=== PATIENT | female | born 1990 | race Caucasian/White ===

== ENCOUNTER 2019-10-18 00:22 | Inpatient (IN) | payer OTHER ==
[2019-10-18 06:41] VITALS: BMI 30.4
[2019-10-18] MEDS ORDERED: CARBOPROST TROME 250 MCG/ML IM PRN ×2 (06:42→17:41)
[2019-10-18] MEDS ORDERED: PROMETHAZINE INJ 25 MG/ML AMP IV PRN (06:42)
[2019-10-18] MEDS ORDERED: METHYLERGONOVINE 0.2MG/ML AMP IM PRN ×2 (06:42→17:41)
[2019-10-18] MEDS ORDERED: BUTORPHANOL 1 MG/ML INJ IV PRN (06:42)
[2019-10-18] MEDS ORDERED: PENICILLIN 5 MU in NA CHLORIDE 0.9% 100 ML IV ONE (06:42)
[2019-10-18] MEDS ORDERED: Ringers Lactate 1,000 ML IV PRN (06:42)
[2019-10-18] MEDS ORDERED: OXYTOCIN/LR 20 UNIT/1,000 ML BAG IV SCH ×2 (07:00→18:00)
[2019-10-18] MEDS ORDERED: Ringers Lactate 1,000 ML IV SCH (07:00)
[2019-10-18 07:22] LABS: Absolute Lymphocytes (CBC) 2.3 K/uL (0.7-4.9); Basophils % 0.6 % (0-1.3); Hematocrit 34.1 % (36.0-45.0); Lymphocytes % 21.9 % (15.3-44.8); MPV 7.9 fL (7.6-11.3); RBC Red Blood Cell Count 3.76 M/uL (3.86-4.86); Urine Appearance CLOUDY; Urine Bilirubin NEGATIVE (NEG); Urine Blood NEGATIVE (NEG); Urine Color YELLOW; Urine Glucose NEGATIVE (NEG); Urine Protein NEGATIVE (NEG); Urine Urobilinogen 0.2 mg/dL (0.2-1.0); Urine pH 6.5 (5.0-7.0)
--- NOTE | 2019-10-18 07:44 | P.PN ---
Date of Service: 10/18/19 Cx 05/10+, 50% effaced, mid, vtx 0 station, FSE applied, no fluid noted at time. Proceedure explained, plan epidural anesthesia.
[2019-10-18] MEDS ORDERED: FENTANYL CITR 100 MCG/2 ML IV ONE (08:00)
[2019-10-18] MEDS ORDERED: FENTANYL/BUPIVACAINE/NS/PF 200 MCG/100 ML BAG EP PRN (08:00)
[2019-10-18] MEDS ORDERED: BUPIVACAINE 0.25% PF 10 ML VIAL IV PRN (08:01)
[2019-10-18 08:07] LABS: Urine Bacteria <20 /HPF (<20); Urine Microscopic Reflex ORDER UMIC; Urine RBC <5 /HPF (NONE SEEN)
[2019-10-18 08:08] LABS: Urine Amorphous Sediment 1+ /HPF (NONE SEEN); Urine Culture Reflex Order NOT NEEDED
--- NOTE | 2019-10-18 08:23 | PREOPHP ---
Date of Admission: 10/18/2019 History Of Present Illness: Ms. Wall is a 29-year-old female, 2, para 1 -0-0-1, now at 39+ weeks gestation. She has been followed by me during this without compli cations other than recent positive beta strep culture. She will be admitted for elective induction o f labor secondary to 39+ week with favorable cervix. Past Medical History: Please see record. Family History: Please see record. Review of Systems: She reports no recent cough, cold, fever, or chills. No recent nausea or vomiting. No breast knots or lumps. No bowel or bladder issues. Infant has been active. Physical Examination: General: Reveals a pleasant female, in no apparent distress. Neck: Supple without adenopathy or thyromegaly. Lungs: Clear. Cardiac: Regular rate and rhythm without murmurs. Breasts: Not examined. Abdomen: Shows a 34 cm fundal height, vertex presentation. heart tones well heard. Pelvic: Cervix 1 cm, 50%, mid position, vertex -1 station. Extremities: No cyanosis, clubbing, or edema. Impression: Term , favorable cervix. Plan: Patient will be admitted for induction of labor, will be prophylaxed with penicillin for beta strep carriage. The risks and benefits are discussed and she has signed operative permit in my presence. ISAIAH/SUSAN Voice ID: [id number]
[2019-10-18] MEDS ORDERED: BUPIVACAINE 0.25% PF 10 ML VIAL ONE (11:16)
[2019-10-18] MEDS ORDERED: BUPIVACAINE 0.25% PF 30 ML VIAL ONE (11:25)
[2019-10-18] MEDS ORDERED: PENICILLIN 2.5 MU in NA CHLORIDE 0.9% 100 ML IV SCH (11:30)
[2019-10-18] MEDS ORDERED: NA CIT/CITRIC AC 30 ML ORAL UDC PO ONE (16:57)
[2019-10-18] MEDS ORDERED: METOCLOPRAMIDE 10 MG/2mL INJ IV SCH (17:00)
[2019-10-18] MEDS ORDERED: ROPIVACAINE HCL 20 ML ONE (17:26)
[2019-10-18] MEDS ORDERED: CEFAZOLIN/SWI 2gm 2 GM/20 ML SYR IVP SCH (17:30)
[2019-10-18] MEDS ORDERED: Oxycodone HCl/Acetaminophen 1 TAB TAB PO PRN (17:41)
[2019-10-18] MEDS ORDERED: METHYLERGONOVINE 0.2 MG TAB PO PRN (17:41)
--- NOTE | 2019-10-18 17:44 | P.BOP ---
Preoperative diagnosis: 39+ wk Postoperative diagnosis: same, delivered, CANX1 Primary procedure: SCVD viable male infant Secondary procedure: repair of perineal laceration Anesthesia: epidural Complications: None Transferred to: Other ([id number]) Condition: Good
[2019-10-18] MEDS ORDERED: FAMOTIDINE 20 MG/2 ML VIAL IV ONE (18:00)
[2019-10-18] MEDS: IBUPROFEN 600 MG TAB PO PRN (20:57)
[2019-10-19 00:48] LABS: RPR (Rapid Plasma Reagin) NON-REACT (NON-REACT)
[2019-10-19] MEDS: IBUPROFEN 600 MG TAB PO PRN ×2 (07:25→16:14)
--- NOTE | 2019-10-19 09:30 | DS ---
Final Hospital Discharge Diagnosis: 39+ week , delivered. Complications: None. Procedures: Artificial rupture of membranes, penicillin prophylaxis for beta strep carriage. Sponta neous controlled vaginal delivery of viable male infant, repair of second-degree perineal laceration, placement of epidural catheter. Hospital Course: The patient is a 29-year-old female, 2, para 1-0-0-1, at 39+ weeks gestation, admitted for elective induction. She delivered 7 pounds 10 ounces male , 8 and 9. She was dismissed on the first day, ambulatory, on a select diet with rout ine post vaginal delivery activity restrictions. Lab work obtained during this hospital stay include d an admission hemoglobin and hematocrit of 11.7 and 34.1, dismissal of 29.3. She had a negative urin alysis, nonreactive RPR. She is Rh positive blood type. Antibody screen negative. She was dismisse d to continue taking her iron and vitamins with prescription for Tylenol No.3 #10 for pain r elief and to be seen back in my office in 6 weeks for care. ISAIAH/SUSAN Voice ID: [id number] Report ID: [id number]
--- NOTE | 2019-10-19 09:42 | OP ---
Surgeon: Conrad Julian MD Ms. Wall is a 29-year-old, female, 2, para 1-0-0-1, at 39+ weeks gestati on, admitted for elective induction of labor secondary to term with favorable cervix. Jeanine use of positive beta strep culture, she was begun on penicillin prophylaxis. Artificial rupture of m embranes was performed. She was begun on Pitocin induction of labor. She had a first stage of labor of 9 hours, second stage of labor 6 minutes. She delivered by spontaneous controlled vaginal delive ry of 7 pounds 10 ounces male , 8 and 9. Cord around the neck was noted at the time of d elivery. After delayed cord clamping, the infant was placed on mother's upper abdomen. Cord blood w as obtained, placenta spontaneously expelled and appeared to be intact. Intrauterine examination rev ealed no retained placental fragments. She suffered a midline second-degree perineal laceration whic h was repaired in the usual fashion with 3-0 Vicryl suture. She had epidural anesthesia and augmente d with local infiltration for episiotomy repair. ISAIAH/SUSAN Voice ID: [id number] Report ID: [id number]
[2019-10-19 16:13] VITALS: BP 98/53; TEMP 97.2
[2019-10-21 18:00] LABS: HBsAG Nonreactive (Nonreactive)
== END 2019-10-19 18:43 | disposition home or self-care (01) | DRG 807 ==
LOC: 2ND-WC 06:23
PROVIDERS: ADMIT Specialist; ATTEND Specialist
PROC: 10907ZC Drainage of Amniotic Fluid, Therapeutic from Products of Conception, Via Natural or Artificial Opening (ICD-10-PCS; principal; 2019-10-19)
PROC: 10E0XZZ Delivery of Products of Conception, External Approach (ICD-10-PCS; 2019-10-19)
PROC: 0KQM0ZZ Repair Perineum Muscle, Open Approach (ICD-10-PCS; 2019-10-19)
PROC: 3E033VJ Introduction of Other Hormone into Peripheral Vein, Percutaneous Approach (ICD-10-PCS; 2019-10-19)
DX: O99.824 Streptococcus B carrier state complicating childbirth (principal); Z37.0 Single live birth; O70.1 Second degree perineal laceration during delivery; Z3A.39 39 weeks gestation of pregnancy
CPT/HCPCS: 36415; 81003; 81015; 85014; 85025; 86592; 86850; 86900; 86901; 87340; J2210; J2590; J3010; J7120